=== PATIENT | female | born 1975 | race American Indian/Alaskan Native ===

== ENCOUNTER 2023-01-20 02:29 | Emergency (ER) | payer SELFPAY | END 2023-01-20 05:09 | LOC: DL.ED 02:29 | DX: S01.511A Laceration without foreign body of lip, initial encounter (principal); S21.112A Laceration without foreign body of left front wall of thorax without penetration into thoracic cavity, initial encounter; Z88.5 Allergy status to narcotic agent; Y04.2XXA Assault by strike against or bumped into by another person, initial encounter | CPT/HCPCS: 12011; 70450; 99284 ==